=== PATIENT | male | born 1950 | race Caucasian/White ===

== ENCOUNTER 2017-06-11 18:48 | Inpatient (IN) | payer MEDICARE, BC ==
[2017-06-12 00:19] LABS: ADD MAN DIFF? NO
[2017-06-12 00:20] LABS: BASOPHILS % 0.1 % (0.0-2.0); EOSINOPHILS % 0.1 % (0.0-7.0); HEMATOCRIT 44.9 % (42.0-52.0); HEMOGLOBIN 15.5 g/dl (14.0-18.0); LYMPHOCYTES # 1.6 10^3/ul (0.8-2.9); LYMPHOCYTES % 12.2 % (15.0-51.0); MEAN CORPUSCULAR HGB CONC 34.5 g/dl (32.0-37.0); MEAN CORPUSCULAR VOLUME 92.8 fl (82.0-101.0); MEAN PLATELET VOLUME 9.4 fl (7.4-10.4); MONOCYTES % 7.6 % (0.0-11.0); NEUTROPHIL # 10.6 10^3/ul (1.6-7.5); NEUTROPHILS % 79.4 % (39.0-77.0); PLATELET COUNT 268 10^3/UL (140-415); RED BLOOD COUNT 4.84 10^6/ul (4.70-6.10); RED CELL DISTRIBUTION WIDTH 13.7 % (11.5-14.5)
[2017-06-12 00:20] LABS: WHITE BLOOD COUNT 13.4 10^3/ul (4.8-10.8)
[2017-06-12] MEDS: ONDANSETRON 4 MG INJ IV (00:23)
[2017-06-12] MEDS: SOD CHLORIDE 0.9% 1,000 ML IV (00:23)
[2017-06-12 00:45] LABS: ALANINE AMINOTRANSFERASE 82 IU/L (13-69); ALBUMIN 4.7 g/dl (3.3-4.9); ALBUMIN/GLOBULIN RATIO 1.02; ALKALINE PHOSPHATASE 108 IU/L (42-121); ANION GAP 20 (8-16); ASPARTATE AMINO TRANSFERASE 94 IU/L (15-46); BILIRUBIN,INDIRECT 0.4 mg/dl (0-1.1); BILIRUBIN,TOTAL 0.4 mg/dl (0.2-1.3); BLOOD UREA NITROGEN 26 mg/dl (7-20); CALCIUM 10.4 mg/dl (8.4-10.2); CARBON DIOXIDE 36 mmol/L (21-31); CHLORIDE 89 mmol/L (97-110); CREATININE 1.58 mg/dl (0.61-1.24); GLUCOSE 127 mg/dl (70-220); LIPASE 85 U/L (23-300); POTASSIUM 3.7 mmol/L (3.5-5.1); SODIUM 141 mmol/L (135-144); TOTAL PROTEIN 9.3 g/dl (6.1-8.1)
[2017-06-12 00:58] LABS: ADD UMIC YES; UR ASCORBIC ACID NEGATIVE (NEGATIVE); UR BACTERIA FEW /HPF (NONE SEEN); UR BILIRUBIN (Dip) 1+ mg/dL (NEGATIVE); UR BLOOD (Dip) 1+ mg/dL (NEGATIVE); UR CLARITY CLOUDY (CLEAR); UR COLOR AMBER (YELLOW); UR GLUCOSE (Dip) 1+ mg/dL (NEGATIVE); UR GRANULAR CAST FEW /HPF (NONE SEEN); UR HYALINE CAST FEW /HPF (NONE SEEN); UR KETONES (Dip) NEGATIVE (NEGATIVE); UR LEUKOCYTE ESTERASE (Dip) 1+ Leu/ul (NEGATIVE); UR MUCUS MODERATE /HPF (NONE SEEN); UR NITRITE (Dip) NEGATIVE (NEGATIVE); UR RBC 9 /HPF (0-5); UR SPECIFIC GRAVITY (Dip) 1.024 (1.003-1.030); UR SQUAMOUS EPITHELIAL CELL FEW /HPF (FEW); UR TOTAL PROTEIN (Dip) 2+ mg/dl (NEGATIVE); UR UROBILINOGEN (Dip) 2+ mg/dL (NEGATIVE); UR WBC 27 /HPF (0-5)
[2017-06-12 01:03] LABS: TROPONIN-I < 0.012 ng/ml (0.00-0.12)
[2017-06-12] MEDS: CEFTRIAXONE 1 GM/50 ML (PMX) 50 ML IVPB (02:04)
[2017-06-12] MEDS ORDERED: NACL 0.9% 3 ML SYG IV (05:00)
[2017-06-12] MEDS ORDERED: ALBUTEROL/IPRATROPIUM (NEB) 3 ML AMP HHN (05:00)
[2017-06-12] MEDS ORDERED: morphine 2 MG INJ IV (05:00)
[2017-06-12] MEDS ORDERED: ONDANSETRON 4 MG INJ IV (05:00)
[2017-06-12] MEDS: DEXTROSE 5%-0.45% NACL 1,000 ML IV ×2 (05:20→16:32)
[2017-06-12] MEDS: FAMOTIDINE 20 MG INJ IV (06:22)
[2017-06-12] MEDS ORDERED: FAMOTIDINE 20 MG INJ IV (09:00)
[2017-06-12 14:28] LABS: ALANINE AMINOTRANSFERASE 60 IU/L (13-69); ALBUMIN 3.8 g/dl (3.3-4.9); ALKALINE PHOSPHATASE 79 IU/L (42-121); ASPARTATE AMINO TRANSFERASE 71 IU/L (15-46); BILIRUBIN,INDIRECT 0.4 mg/dl (0-1.1); BILIRUBIN,TOTAL 0.4 mg/dl (0.2-1.3); TOTAL PROTEIN 7.3 g/dl (6.1-8.1)
[2017-06-12] MEDS ORDERED: PROMETHAZINE/CODEINE 5ML CUP PO (15:00)
[2017-06-12 16:58] LABS: ADD UMIC YES; UR ASCORBIC ACID NEGATIVE (NEGATIVE); UR BILIRUBIN (Dip) NEGATIVE (NEGATIVE); UR BLOOD (Dip) 1+ mg/dL (NEGATIVE); UR CLARITY CLEAR (CLEAR); UR COLOR YELLOW (YELLOW); UR GLUCOSE (Dip) NEGATIVE (NEGATIVE); UR KETONES (Dip) NEGATIVE (NEGATIVE); UR LEUKOCYTE ESTERASE (Dip) TRACE Leu/ul (NEGATIVE); UR NITRITE (Dip) NEGATIVE (NEGATIVE); UR RBC 2 /HPF (0-5); UR SPECIFIC GRAVITY (Dip) 1.019 (1.003-1.030); UR TOTAL PROTEIN (Dip) NEGATIVE (NEGATIVE); UR UROBILINOGEN (Dip) 1+ mg/dL (NEGATIVE); UR WBC 4 /HPF (0-5)
[2017-06-12] MEDS: ALBUTEROL HFA 8 GM INHALER INH ×2 (17:00→21:08)
[2017-06-12 17:07] LABS: SODIUM,URINE RANDOM 120 mmol/L (30-90)
[2017-06-12 17:11] LABS: CREATININE,URINE RANDOM 229.92 mg/dl (20-370)
[2017-06-12] MEDS: PANTOPRAZOLE 40 MG INJ IV (17:41)
[2017-06-12] MEDS: METOPROLOL (XL) 25 MG TAB PO (21:09)
[2017-06-13] MEDS: DEXTROSE 5%-0.45% NACL 1,000 ML IV ×3 (00:58→13:23)
[2017-06-13] MEDS: CEFTRIAXONE 1 GM/50 ML (PMX) 50 ML IVPB (01:35)
[2017-06-13] MEDS: ALBUTEROL HFA 8 GM INHALER INH ×6 (01:36→22:00)
[2017-06-13] MEDS: PANTOPRAZOLE 40 MG INJ IV ×2 (05:10→19:33)
[2017-06-13 05:56] LABS: ADD MAN DIFF? NO
[2017-06-13 06:13] LABS: BASOPHILS % 0.2 % (0.0-2.0); EOSINOPHILS # 0.1 10^3/ul (0.0-0.5); EOSINOPHILS % 0.9 % (0.0-7.0); LYMPHOCYTES % 22.2 % (15.0-51.0); MEAN CORPUSCULAR HEMOGLOBIN 31.9 pg (29.0-33.0); MEAN CORPUSCULAR HGB CONC 33.3 g/dl (32.0-37.0); MEAN CORPUSCULAR VOLUME 95.8 fl (82.0-101.0); MONOCYTE # 0.7 10^3/ul (0.3-0.9); MONOCYTES % 7.4 % (0.0-11.0); NEUTROPHIL # 6.3 10^3/ul (1.6-7.5); NEUTROPHILS % 68.6 % (39.0-77.0); PLATELET COUNT 202 10^3/UL (140-415); RED BLOOD COUNT 4.07 10^6/ul (4.70-6.10); RED CELL DISTRIBUTION WIDTH 13.4 % (11.5-14.5)
[2017-06-13 06:13] LABS: WHITE BLOOD COUNT 9.1 10^3/ul (4.8-10.8)
[2017-06-13 06:39] LABS: ALANINE AMINOTRANSFERASE 56 IU/L (13-69); ALBUMIN/GLOBULIN RATIO 1.08; ALKALINE PHOSPHATASE 77 IU/L (42-121); ANION GAP 14 (8-16); ASPARTATE AMINO TRANSFERASE 53 IU/L (15-46); BILIRUBIN,INDIRECT 0.2 mg/dl (0-1.1); BILIRUBIN,TOTAL 0.2 mg/dl (0.2-1.3); BLOOD UREA NITROGEN 16 mg/dl (7-20); CARBON DIOXIDE 33 mmol/L (21-31); CHLORIDE 97 mmol/L (97-110); CREATININE 0.94 mg/dl (0.61-1.24); GLUCOSE 95 mg/dl (70-220); MAGNESIUM 1.4 mg/dl (1.7-2.5); PHOSPHORUS 3.4 mg/dl (2.5-4.9); POTASSIUM 3.6 mmol/L (3.5-5.1); SODIUM 140 mmol/L (135-144); TOTAL PROTEIN 7.7 g/dl (6.1-8.1)
[2017-06-13] MEDS: METOPROLOL (XL) 25 MG TAB PO ×2 (08:05→22:00)
[2017-06-13] MEDS: predniSONE 20 MG TAB PO (08:05)
[2017-06-13] MEDS: MAGNESIUM SULFATE 2 GM/50 ML 50 ML IVPB (10:22)
[2017-06-13] MEDS: NICOTINE (21 MG/24 HR) PATCH TRANSDERM (19:34)
[2017-06-14] MEDS: CEFTRIAXONE 1 GM/50 ML (PMX) 50 ML IVPB (01:28)
[2017-06-14] MEDS: ALBUTEROL HFA 8 GM INHALER INH ×3 (01:28→08:35)
[2017-06-14] MEDS: DEXTROSE 5%-0.45% NACL 1,000 ML IV (02:19)
[2017-06-14] MEDS: hydrALAzine 20 MG INJ IV (02:19)
[2017-06-14] MEDS: PANTOPRAZOLE (EC) 40 MG TAB PO (05:14)
[2017-06-14 05:47] LABS: ADD MAN DIFF? NO
[2017-06-14 05:55] LABS: BASOPHILS % 0.2 % (0.0-2.0); EOSINOPHILS # 0.1 10^3/ul (0.0-0.5); EOSINOPHILS % 0.7 % (0.0-7.0); HEMOGLOBIN 13.2 g/dl (14.0-18.0); LYMPHOCYTES # 1.9 10^3/ul (0.8-2.9); LYMPHOCYTES % 18.8 % (15.0-51.0); MEAN CORPUSCULAR HEMOGLOBIN 31.8 pg (29.0-33.0); MEAN CORPUSCULAR HGB CONC 33.8 g/dl (32.0-37.0); MONOCYTE # 0.9 10^3/ul (0.3-0.9); MONOCYTES % 8.7 % (0.0-11.0); NEUTROPHIL # 7.1 10^3/ul (1.6-7.5); NEUTROPHILS % 71.3 % (39.0-77.0); PLATELET COUNT 189 10^3/UL (140-415); RED BLOOD COUNT 4.15 10^6/ul (4.70-6.10); RED CELL DISTRIBUTION WIDTH 13.4 % (11.5-14.5)
[2017-06-14 06:31] LABS: ANION GAP 17 (8-16); BLOOD UREA NITROGEN 16 mg/dl (7-20); CALCIUM 9.8 mg/dl (8.4-10.2); CARBON DIOXIDE 29 mmol/L (21-31); CHLORIDE 104 mmol/L (97-110); CREATININE 0.83 mg/dl (0.61-1.24); GLUCOSE 95 mg/dl (70-220); POTASSIUM 3.5 mmol/L (3.5-5.1); SODIUM 146 mmol/L (135-144)
[2017-06-14] MEDS ORDERED: INFLUENZA VIRUS VACCINE 0.5 ML (DISPENSING) IM* (08:00)
[2017-06-14] MEDS: predniSONE 20 MG TAB PO (08:34)
[2017-06-14] MEDS: NICOTINE (21 MG/24 HR) PATCH TRANSDERM (08:34)
[2017-06-14] MEDS: METOPROLOL (XL) 25 MG TAB PO (08:34)
[2017-06-14 15:02] LABS: CREATININE, RANDOM URINE 252 mg/dL (20-370); MICROALBUMIN 1.6 mg/dL; MICROALBUMIN/CREATININE RATIO 6 (<30)
== END 2017-06-14 14:00 | disposition home or self-care (01) | DRG 392 ==
LOC: E/R 18:48 → MS2 06-12 02:24
PROVIDERS: Internal Medicine
DX: K29.70 Gastritis, unspecified, without bleeding (principal); N39.0 Urinary tract infection, site not specified; N17.9 Acute kidney failure, unspecified; E87.3 Alkalosis; E87.0 Hyperosmolality and hypernatremia; E86.9 Volume depletion, unspecified; F10.10 Alcohol abuse, uncomplicated; F17.200 Nicotine dependence, unspecified, uncomplicated; I10 Essential (primary) hypertension; J44.9 Chronic obstructive pulmonary disease, unspecified; R00.0 Tachycardia, unspecified; Z53.20 Procedure and treatment not carried out because of patient's decision for unspecified reasons
CPT/HCPCS: 36415; 74176; 80048; 80053; 80076; 81001; 81003; 82043; 82962; 83690; 83735; 84100; 84155; 84300; 84484; 85025; 87086; 93005; 96374; 96375; 99285-25

== ENCOUNTER 2018-02-10 04:07 | Inpatient (IN) | payer MEDICARE, BC ==
[2018-02-10] MEDS: ALBUTEROL 0.083% (NEB) 2.5 MG/3 ML AMP HHN (04:30)
[2018-02-10] MEDS: IPRATROPIUM (NEB) 0.5 MG/2.5 ML AMP HHN (04:31)
[2018-02-10] MEDS: ALBUTEROL 0.083% (NEB) 2.5 MG/3 ML AMP INH (04:33)
[2018-02-10] MEDS: IPRATROPIUM (NEB) 0.5 MG/2.5 ML AMP INH (04:33)
[2018-02-10 04:47] LABS: ADD MAN DIFF? NO
[2018-02-10 04:49] LABS: WHITE BLOOD COUNT 7.7 10^3/ul (4.8-10.8)
[2018-02-10 04:49] LABS: BASOPHILS % 0.3 % (0.0-2.0); EOSINOPHILS # 0.1 10^3/ul (0.0-0.5); EOSINOPHILS % 1.2 % (0.0-7.0); HEMATOCRIT 45.7 % (42.0-52.0); HEMOGLOBIN 15.1 g/dl (14.0-18.0); LYMPHOCYTES # 2.1 10^3/ul (0.8-2.9); LYMPHOCYTES % 26.6 % (15.0-51.0); MEAN CORPUSCULAR HEMOGLOBIN 31.3 pg (29.0-33.0); MEAN CORPUSCULAR VOLUME 94.8 fl (82.0-101.0); MEAN PLATELET VOLUME 9.4 fl (7.4-10.4); MONOCYTE # 0.8 10^3/ul (0.3-0.9); MONOCYTES % 10.9 % (0.0-11.0); NEUTROPHIL # 4.7 10^3/ul (1.6-7.5); NEUTROPHILS % 60.7 % (39.0-77.0); PLATELET COUNT 283 10^3/UL (140-415); RED BLOOD COUNT 4.82 10^6/ul (4.70-6.10)
[2018-02-10 05:05] LABS: ALANINE AMINOTRANSFERASE 20 IU/L (13-69); ALBUMIN 4.3 g/dl (3.3-4.9); ALBUMIN/GLOBULIN RATIO 0.97; ALKALINE PHOSPHATASE 90 IU/L (42-121); ANION GAP 13 (5-13); ASPARTATE AMINO TRANSFERASE 41 IU/L (15-46); BILIRUBIN,INDIRECT 0.3 mg/dl (0-1.1); BILIRUBIN,TOTAL 0.3 mg/dl (0.2-1.3); BLOOD UREA NITROGEN 14 mg/dl (7-20); CALCIUM 9.5 mg/dl (8.4-10.2); CARBON DIOXIDE 31 mmol/L (21-31); CHLORIDE 101 mmol/L (97-110); CREATININE 0.81 mg/dl (0.61-1.24); Estimated GFR > 60 mL/min (>60); GLUCOSE 109 mg/dl (70-220); POTASSIUM 3.9 mmol/L (3.5-5.1); SODIUM 145 mmol/L (135-144); TOTAL PROTEIN 8.7 g/dl (6.1-8.1)
[2018-02-10 05:15] LABS: INR 0.83; PARTIAL THROMBOPLASTIN TIME 27.2 Sec (23.0-35.0); PROTIME 11.5 Sec (11.9-14.9); PT RATIO 0.9
[2018-02-10 05:17] LABS: B-TYPE NATRIURETIC PEPTIDE 114 PG/ML (0-125); TROPONIN-I < 0.012 ng/ml (0.000-0.120)
[2018-02-10 05:36] LABS: AADO2 Arterial 579.8 mmHg (7.0-24.0); Allen Test ACCEPTAB; Arterial Blood Gas Oxygen Sat 95.9 mmHG (95.0-98.0); Arterial COHb 3.1 % (0.0-3.0); Arterial Fraction of Oxyhgb 92.6 % (93.0-99.0); Arterial HCO3 30.2 mmol/L (22.0-26.0); Arterial MetHb 0.3 % (0.0-1.5); Arterial Total Hemglobin 15.9 g/dl (12.0-18.0); MODE MASK - NRB; Site Right Radial
[2018-02-10] MEDS ORDERED: morphine 4 MG/ML VIAL (05:44)
[2018-02-10] MEDS: morphine 10 MG INJ IV (06:08)
[2018-02-10 08:40] LABS: LACTIC ACID 1.7 mmol/L (0.5-2.0)
[2018-02-10] MEDS ORDERED: ALBUTEROL/IPRATROPIUM (NEB) 3 ML AMP HHN (11:00)
[2018-02-10] MEDS: morphine 2 MG INJ IV ×3 (11:38→21:04)
[2018-02-10] MEDS: AMLODIPINE 10 MG TAB PO (13:24)
[2018-02-10] MEDS ORDERED: ACETAMINOPHEN 325 MG TAB PO (13:30)
[2018-02-10] MEDS ORDERED: ZOLPIDEM 5 MG TAB PO (13:30)
[2018-02-10] MEDS ORDERED: NACL 0.9% 3 ML SYG IV (13:30)
[2018-02-10] MEDS: PANTOPRAZOLE (EC) 40 MG TAB PO (14:15)
[2018-02-10] MEDS: ONDANSETRON 4 MG INJ IV ×2 (14:15→21:03)
[2018-02-11] MEDS: PANTOPRAZOLE (EC) 40 MG TAB PO (05:36)
[2018-02-11] MEDS: ONDANSETRON 4 MG INJ IV (05:36)
[2018-02-11] MEDS: morphine 2 MG INJ IV ×4 (05:38→23:19)
[2018-02-11 07:08] LABS: ADD MAN DIFF? NO
[2018-02-11 07:20] LABS: BASOPHILS % 0.2 % (0.0-2.0); EOSINOPHILS # 0.1 10^3/ul (0.0-0.5); EOSINOPHILS % 1.2 % (0.0-7.0); HEMOGLOBIN 13.9 g/dl (14.0-18.0); LYMPHOCYTES # 1.2 10^3/ul (0.8-2.9); LYMPHOCYTES % 14.4 % (15.0-51.0); MEAN CORPUSCULAR HEMOGLOBIN 31.1 pg (29.0-33.0); MEAN CORPUSCULAR HGB CONC 32.3 g/dl (32.0-37.0); MEAN CORPUSCULAR VOLUME 96.2 fl (82.0-101.0); MEAN PLATELET VOLUME 9.8 fl (7.4-10.4); MONOCYTE # 0.8 10^3/ul (0.3-0.9); MONOCYTES % 9.1 % (0.0-11.0); NEUTROPHIL # 6.3 10^3/ul (1.6-7.5); NEUTROPHILS % 74.9 % (39.0-77.0); PLATELET COUNT 246 10^3/UL (140-415); RED BLOOD COUNT 4.47 10^6/ul (4.70-6.10); RED CELL DISTRIBUTION WIDTH 14.1 % (11.5-14.5)
[2018-02-11 07:20] LABS: WHITE BLOOD COUNT 8.4 10^3/ul (4.8-10.8)
[2018-02-11 07:40] LABS: ANION GAP 8 (5-13); BLOOD UREA NITROGEN 13 mg/dl (7-20); CARBON DIOXIDE 32 mmol/L (21-31); CHLORIDE 97 mmol/L (97-110); CREATININE 0.74 mg/dl (0.61-1.24); Estimated GFR > 60 mL/min (>60); GLUCOSE 143 mg/dl (70-220); POTASSIUM 3.7 mmol/L (3.5-5.1); SODIUM 137 mmol/L (135-144)
[2018-02-11] MEDS: AMLODIPINE 10 MG TAB PO (09:02)
[2018-02-12 07:14] LABS: ADD MAN DIFF? NO
[2018-02-12] MEDS: PANTOPRAZOLE (EC) 40 MG TAB PO (07:17)
[2018-02-12 07:18] LABS: WHITE BLOOD COUNT 9.9 10^3/ul (4.8-10.8)
[2018-02-12 07:18] LABS: BASOPHILS % 0.2 % (0.0-2.0); EOSINOPHILS # 0.1 10^3/ul (0.0-0.5); EOSINOPHILS % 0.7 % (0.0-7.0); HEMATOCRIT 43.3 % (42.0-52.0); HEMOGLOBIN 14.4 g/dl (14.0-18.0); LYMPHOCYTES # 1.6 10^3/ul (0.8-2.9); MEAN CORPUSCULAR HEMOGLOBIN 31.9 pg (29.0-33.0); MEAN CORPUSCULAR HGB CONC 33.3 g/dl (32.0-37.0); MEAN CORPUSCULAR VOLUME 95.8 fl (82.0-101.0); MEAN PLATELET VOLUME 9.8 fl (7.4-10.4); MONOCYTE # 0.8 10^3/ul (0.3-0.9); MONOCYTES % 8.5 % (0.0-11.0); NEUTROPHIL # 7.4 10^3/ul (1.6-7.5); NEUTROPHILS % 74.4 % (39.0-77.0); PLATELET COUNT 256 10^3/UL (140-415); RED BLOOD COUNT 4.52 10^6/ul (4.70-6.10); RED CELL DISTRIBUTION WIDTH 13.6 % (11.5-14.5)
[2018-02-12 07:53] LABS: ANION GAP 8 (5-13); BLOOD UREA NITROGEN 14 mg/dl (7-20); CALCIUM 9.1 mg/dl (8.4-10.2); CARBON DIOXIDE 32 mmol/L (21-31); CHLORIDE 97 mmol/L (97-110); CREATININE 0.73 mg/dl (0.61-1.24); Estimated GFR > 60 mL/min (>60); GLUCOSE 102 mg/dl (70-220); MAGNESIUM 1.6 mg/dl (1.7-2.5); POTASSIUM 4.3 mmol/L (3.5-5.1); SODIUM 137 mmol/L (135-144)
[2018-02-12] MEDS: AMLODIPINE 10 MG TAB PO (08:56)
[2018-02-12] MEDS: morphine 2 MG INJ IV ×3 (12:59→21:06)
[2018-02-12] MEDS: GUAIFENESIN 20 MG/ML 5ML CUP PO (21:05)
[2018-02-13] MEDS: morphine 2 MG INJ IV ×5 (01:49→20:57)
[2018-02-13] MEDS: PANTOPRAZOLE (EC) 40 MG TAB PO (05:43)
[2018-02-13] MEDS: AMLODIPINE 10 MG TAB PO (08:44)
[2018-02-14] MEDS: PANTOPRAZOLE (EC) 40 MG TAB PO (05:09)
[2018-02-14 06:39] LABS: ADD MAN DIFF? NO
[2018-02-14 06:51] LABS: BASOPHILS % 0.3 % (0.0-2.0); EOSINOPHILS # 0.1 10^3/ul (0.0-0.5); EOSINOPHILS % 1.2 % (0.0-7.0); HEMATOCRIT 42.6 % (42.0-52.0); HEMOGLOBIN 14.1 g/dl (14.0-18.0); LYMPHOCYTES # 1.7 10^3/ul (0.8-2.9); LYMPHOCYTES % 16.4 % (15.0-51.0); MEAN CORPUSCULAR HEMOGLOBIN 31.5 pg (29.0-33.0); MEAN CORPUSCULAR HGB CONC 33.1 g/dl (32.0-37.0); MEAN CORPUSCULAR VOLUME 95.1 fl (82.0-101.0); MEAN PLATELET VOLUME 9.8 fl (7.4-10.4); MONOCYTE # 1.1 10^3/ul (0.3-0.9); MONOCYTES % 10.3 % (0.0-11.0); NEUTROPHIL # 7.4 10^3/ul (1.6-7.5); NEUTROPHILS % 71.3 % (39.0-77.0); PLATELET COUNT 280 10^3/UL (140-415); RED BLOOD COUNT 4.48 10^6/ul (4.70-6.10); RED CELL DISTRIBUTION WIDTH 13.3 % (11.5-14.5)
[2018-02-14 06:51] LABS: WHITE BLOOD COUNT 10.3 10^3/ul (4.8-10.8)
[2018-02-14 07:32] LABS: ANION GAP 9 (5-13); BLOOD UREA NITROGEN 19 mg/dl (7-20); CALCIUM 9.3 mg/dl (8.4-10.2); CARBON DIOXIDE 32 mmol/L (21-31); CHLORIDE 96 mmol/L (97-110); CREATININE 0.82 mg/dl (0.61-1.24); Estimated GFR > 60 mL/min (>60); GLUCOSE 123 mg/dl (70-220); MAGNESIUM 1.7 mg/dl (1.7-2.5); PHOSPHORUS 4.3 mg/dl (2.5-4.9); POTASSIUM 4.6 mmol/L (3.5-5.1); SODIUM 137 mmol/L (135-144)
[2018-02-14] MEDS: AMLODIPINE 10 MG TAB PO (08:24)
[2018-02-14] MEDS: morphine 2 MG INJ IV (11:10)
[2018-02-15] MEDS: PANTOPRAZOLE (EC) 40 MG TAB PO (05:42)
[2018-02-15] MEDS: HYDROCODONE/APAP (5/325) TAB PO (05:48)
[2018-02-15] MEDS: AMLODIPINE 10 MG TAB PO (08:19)
== END 2018-02-15 16:43 | disposition home or self-care (01) | DRG 199 ==
LOC: E/R 04:07 → TEL 05:53
PROC: 0W9B30Z Drainage of Left Pleural Cavity with Drainage Device, Percutaneous Approach (ICD-10-PCS; principal; 2018-02-10)
DX: J93.0 Spontaneous tension pneumothorax (principal); J96.01 Acute respiratory failure with hypoxia; J44.9 Chronic obstructive pulmonary disease, unspecified; F17.210 Nicotine dependence, cigarettes, uncomplicated; I10 Essential (primary) hypertension; K29.50 Unspecified chronic gastritis without bleeding; Z87.11 Personal history of peptic ulcer disease; Z99.81 Dependence on supplemental oxygen
CPT/HCPCS: 36415; 36600; 71045; 71250; 80048; 80053; 82803; 83605; 83735; 83880; 84100; 84484; 85025; 85610; 85730; 93005; 94644; 94660; 99291-25

== ENCOUNTER 2018-05-22 20:39 | Emergency (ER) | payer MEDICARE, BC ==
[2018-05-23 03:19] LABS: WHITE BLOOD COUNT 8.4 10^3/ul (4.8-10.8)
[2018-05-23 03:19] LABS: ADD MAN DIFF? NO; BASOPHILS % 0.5 % (0.0-2.0); EOSINOPHILS # 0.2 10^3/ul (0.0-0.5); EOSINOPHILS % 2.5 % (0.0-7.0); HEMATOCRIT 40.1 % (42.0-52.0); HEMOGLOBIN 13.4 g/dl (14.0-18.0); LYMPHOCYTES # 1.7 10^3/ul (0.8-2.9); LYMPHOCYTES % 20.6 % (15.0-51.0); MEAN CORPUSCULAR HEMOGLOBIN 31.4 pg (29.0-33.0); MEAN CORPUSCULAR HGB CONC 33.4 g/dl (32.0-37.0); MEAN CORPUSCULAR VOLUME 93.9 fl (82.0-101.0); MEAN PLATELET VOLUME 9.6 fl (7.4-10.4); MONOCYTE # 0.8 10^3/ul (0.3-0.9); MONOCYTES % 9.9 % (0.0-11.0); NEUTROPHIL # 5.5 10^3/ul (1.6-7.5); NEUTROPHILS % 65.9 % (39.0-77.0); PLATELET COUNT 219 10^3/UL (140-415); RED BLOOD COUNT 4.27 10^6/ul (4.70-6.10); RED CELL DISTRIBUTION WIDTH 14.1 % (11.5-14.5)
[2018-05-23 04:34] LABS: ALANINE AMINOTRANSFERASE 23 IU/L (13-69); ALBUMIN 3.9 g/dl (3.3-4.9); ALBUMIN/GLOBULIN RATIO 1.08; ALKALINE PHOSPHATASE 70 IU/L (42-121); ANION GAP 11 (5-13); ASPARTATE AMINO TRANSFERASE 31 IU/L (15-46); BILIRUBIN,INDIRECT 0.5 mg/dl (0-1.1); BILIRUBIN,TOTAL 0.5 mg/dl (0.2-1.3); BLOOD UREA NITROGEN 12 mg/dl (7-20); CALCIUM 9.6 mg/dl (8.4-10.2); CARBON DIOXIDE 26 mmol/L (21-31); CHLORIDE 104 mmol/L (97-110); CREATININE 0.75 mg/dl (0.61-1.24); Estimated GFR > 60 mL/min (>60); GLUCOSE 100 mg/dl (70-220); LIPASE 351 U/L (23-300); SODIUM 141 mmol/L (135-144); TOTAL PROTEIN 7.5 g/dl (6.1-8.1)
[2018-05-23] MEDS: PIPER-TAZO 3.375 GM IV (PMX) 100 ML IVPB (05:13)
== END 2018-05-23 05:49 | disposition home or self-care (01) ==
LOC: E/R 20:39
DX: L03.313 Cellulitis of chest wall (principal); I10 Essential (primary) hypertension; F17.210 Nicotine dependence, cigarettes, uncomplicated
CPT/HCPCS: 36415; 71250; 80053; 83690; 85025; 87040; 96365; 99285-25

== ENCOUNTER 2018-07-02 20:36 | Inpatient (IN) | payer MEDICARE, BC ==
[2018-07-02 20:57] LABS: ADD MAN DIFF? NO
[2018-07-02] MEDS: ALBUTEROL 0.5% (NEB) 2.5 MG/0.5 ML AMP INH (21:01)
[2018-07-02] MEDS: SOD CHLORIDE 0.9% 500 ML IV (21:01)
[2018-07-02 21:04] LABS: AADO2 Arterial 93.4 mmHg (7.0-24.0); Allen Test ACCEPTAB; Arterial Base Excess 2.1 mmol/L (-3.0-3); Arterial Blood Gas Oxygen Sat 94.6 mmHG (95.0-98.0); Arterial COHb 0.5 % (0.0-3.0); Arterial Fraction of Oxyhgb 93.8 % (93.0-99.0); Arterial HCO3 26.7 mmol/L (22.0-26.0); Arterial MetHb 0.3 % (0.0-1.5); Arterial pCO2 41.3 mmhg (35-45); MODE NASAL CANNULA; Site Left Radial
[2018-07-02] MEDS: METHYLPREDNISOLONE 125 MG INJ IV (21:08)
[2018-07-02] MEDS: LORAZEPAM 2 MG INJ IV (21:08)
[2018-07-02] MEDS: ASPIRIN 81 MG TAB PO (21:10)
[2018-07-02 21:17] LABS: ALANINE AMINOTRANSFERASE 40 IU/L (13-69); ALBUMIN/GLOBULIN RATIO 1.11; ALKALINE PHOSPHATASE 117 IU/L (42-121); ANION GAP 21 (5-13); ASPARTATE AMINO TRANSFERASE 52 IU/L (15-46); BILIRUBIN,INDIRECT 0.8 mg/dl (0-1.1); BILIRUBIN,TOTAL 0.8 mg/dl (0.2-1.3); BLOOD UREA NITROGEN 18 mg/dl (7-20); CALCIUM 10.5 mg/dl (8.4-10.2); CARBON DIOXIDE 23 mmol/L (21-31); CHLORIDE 100 mmol/L (97-110); CREATININE 1.01 mg/dl (0.61-1.24); Estimated GFR > 60 mL/min (>60); GLUCOSE 145 mg/dl (70-220); LIPASE 147 U/L (23-300); POTASSIUM 4.5 mmol/L (3.5-5.1); SODIUM 144 mmol/L (135-144); TOTAL PROTEIN 9.1 g/dl (6.1-8.1)
[2018-07-02 21:26] LABS: BASOPHIL # 0.1 10^3/ul (0.0-0.1); BASOPHILS % 0.6 % (0.0-2.0); HEMATOCRIT 43.8 % (42.0-52.0); HEMOGLOBIN 14.7 g/dl (14.0-18.0); LYMPHOCYTES # 1.2 10^3/ul (0.8-2.9); LYMPHOCYTES % 11.5 % (15.0-51.0); MEAN CORPUSCULAR HEMOGLOBIN 31.3 pg (29.0-33.0); MEAN CORPUSCULAR HGB CONC 33.6 g/dl (32.0-37.0); MEAN CORPUSCULAR VOLUME 93.2 fl (82.0-101.0); MEAN PLATELET VOLUME 8.8 fl (7.4-10.4); MONOCYTE # 0.3 10^3/ul (0.3-0.9); MONOCYTES % 3.2 % (0.0-11.0); NEUTROPHIL # 9.1 10^3/ul (1.6-7.5); NEUTROPHILS % 84.4 % (39.0-77.0); PLATELET COUNT 266 10^3/UL (140-415); RED CELL DISTRIBUTION WIDTH 13.7 % (11.5-14.5)
[2018-07-02 21:26] LABS: WHITE BLOOD COUNT 10.7 10^3/ul (4.8-10.8)
[2018-07-02 21:28] LABS: TROPONIN-I < 0.012 ng/ml (0.000-0.120)
[2018-07-02] MEDS ORDERED: ACETAMINOPHEN 325 MG TAB PO (21:30)
[2018-07-02] MEDS ORDERED: NACL 0.9% 3 ML SYG IV (21:30)
[2018-07-02] MEDS ORDERED: ONDANSETRON 4 MG INJ IV (21:30)
[2018-07-02] MEDS ORDERED: ALBUTEROL 0.083% (NEB) 2.5 MG/3 ML AMP HHN (21:30)
[2018-07-02 21:35] LABS: B-TYPE NATRIURETIC PEPTIDE 42 PG/ML (0-125)
[2018-07-02 21:49] LABS: ALBUMIN 4.8 g/dl (3.3-4.9)
[2018-07-03 05:55] LABS: ADD MAN DIFF? NO
[2018-07-03 05:57] LABS: ABNORMAL IP MESSAGE 1; BASOPHILS % 0.1 % (0.0-2.0); HEMOGLOBIN 14.3 g/dl (14.0-18.0); LYMPHOCYTES # 0.5 10^3/ul (0.8-2.9); LYMPHOCYTES % 7.6 % (15.0-51.0); MEAN CORPUSCULAR HEMOGLOBIN 31.6 pg (29.0-33.0); MEAN CORPUSCULAR VOLUME 92.7 fl (82.0-101.0); MEAN PLATELET VOLUME 9.2 fl (7.4-10.4); MONOCYTES % 0.4 % (0.0-11.0); NEUTROPHIL # 6.2 10^3/ul (1.6-7.5); NEUTROPHILS % 91.6 % (39.0-77.0); PLATELET COUNT 252 10^3/UL (140-415); POSITIVE DIFF @See below; RED BLOOD COUNT 4.53 10^6/ul (4.70-6.10)
[2018-07-03 05:57] LABS: WHITE BLOOD COUNT 6.8 10^3/ul (4.8-10.8)
[2018-07-03 06:28] LABS: ALANINE AMINOTRANSFERASE 40 IU/L (13-69); ALBUMIN 4.1 g/dl (3.3-4.9); ALKALINE PHOSPHATASE 85 IU/L (42-121); ANION GAP 13 (5-13); ASPARTATE AMINO TRANSFERASE 37 IU/L (15-46); BILIRUBIN,INDIRECT 0.8 mg/dl (0-1.1); BILIRUBIN,TOTAL 0.8 mg/dl (0.2-1.3); BLOOD UREA NITROGEN 19 mg/dl (7-20); CALCIUM 9.7 mg/dl (8.4-10.2); CARBON DIOXIDE 29 mmol/L (21-31); CHLORIDE 97 mmol/L (97-110); CREATININE 0.82 mg/dl (0.61-1.24); Estimated GFR > 60 mL/min (>60); GLUCOSE 179 mg/dl (70-220); POTASSIUM 4.1 mmol/L (3.5-5.1); SODIUM 139 mmol/L (135-144); TOTAL PROTEIN 7.5 g/dl (6.1-8.1)
[2018-07-03 06:38] LABS: HEMOGLOBIN A1C 5.4 % (0-5.9)
[2018-07-03] MEDS: FAMOTIDINE 20 MG INJ IV (09:38)
[2018-07-03] MEDS: METHYLPREDNISOLONE 125 MG INJ IV ×2 (09:38→23:09)
[2018-07-03] MEDS: ENOXAPARIN 30 MG/0.3 ML SYG SC (09:40)
[2018-07-03] MEDS ORDERED: LORAZEPAM 0.5 MG TAB PO (13:00)
[2018-07-03] MEDS: FAMOTIDINE 20 MG TAB PO (23:09)
[2018-07-04] MEDS: morphine 2 MG INJ IV (00:20)
[2018-07-04] MEDS: METHYLPREDNISOLONE 125 MG INJ IV ×2 (09:18→22:45)
[2018-07-04] MEDS: FAMOTIDINE 20 MG TAB PO ×2 (09:19→22:46)
[2018-07-04] MEDS: ENOXAPARIN 30 MG/0.3 ML SYG SC (09:24)
[2018-07-04 12:10] LABS: CREATINE KINASE 74 IU/L (23-200)
[2018-07-04 12:24] LABS: CK INDEX 2.6; CK-MB 1.91 ng/ml (0.0-2.4); TROPONIN-I < 0.012 ng/ml (0.000-0.120)
[2018-07-04] MEDS: MAGNESIUM SULFATE 2 GM/50 ML 50 ML IVPB (15:59)
[2018-07-04] MEDS: DILTIAZEM (CD) 120 MG CAP PO ×2 (15:59→22:46)
[2018-07-04] MEDS: CEFTRIAXONE 1 GM/50 ML (PMX) 50 ML IVPB (22:44)
[2018-07-04] MEDS: LOPERAMIDE 2 MG CAP PO (23:14)
[2018-07-05 05:56] LABS: ADD MAN DIFF? NO
[2018-07-05 06:02] LABS: WHITE BLOOD COUNT 11.7 10^3/ul (4.8-10.8)
[2018-07-05 06:02] LABS: BASOPHILS % 0.1 % (0.0-2.0); HEMATOCRIT 40.9 % (42.0-52.0); HEMOGLOBIN 13.7 g/dl (14.0-18.0); LYMPHOCYTES # 0.7 10^3/ul (0.8-2.9); LYMPHOCYTES % 5.9 % (15.0-51.0); MEAN CORPUSCULAR HEMOGLOBIN 32.1 pg (29.0-33.0); MEAN CORPUSCULAR HGB CONC 33.5 g/dl (32.0-37.0); MEAN CORPUSCULAR VOLUME 95.8 fl (82.0-101.0); MONOCYTE # 0.2 10^3/ul (0.3-0.9); MONOCYTES % 1.9 % (0.0-11.0); NEUTROPHIL # 10.7 10^3/ul (1.6-7.5); NEUTROPHILS % 91.3 % (39.0-77.0); PLATELET COUNT 201 10^3/UL (140-415); RED BLOOD COUNT 4.27 10^6/ul (4.70-6.10)
[2018-07-05 06:44] LABS: ANION GAP 11 (5-13); BLOOD UREA NITROGEN 24 mg/dl (7-20); CALCIUM 9.3 mg/dl (8.4-10.2); CARBON DIOXIDE 27 mmol/L (21-31); CHLORIDE 100 mmol/L (97-110); CREATININE 0.81 mg/dl (0.61-1.24); Estimated GFR > 60 mL/min (>60); GLUCOSE 154 mg/dl (70-220); POTASSIUM 4.6 mmol/L (3.5-5.1); SODIUM 138 mmol/L (135-144)
[2018-07-05] MEDS: METHYLPREDNISOLONE 125 MG INJ IV ×2 (08:59→21:13)
[2018-07-05] MEDS: FAMOTIDINE 20 MG TAB PO ×2 (09:04→21:13)
[2018-07-05] MEDS: DILTIAZEM (CD) 120 MG CAP PO ×2 (09:04→21:13)
[2018-07-05] MEDS: ENOXAPARIN 40 MG/0.4 ML SYG SC (09:07)
[2018-07-05] MEDS: CEFTRIAXONE 1 GM/50 ML (PMX) 50 ML IVPB (17:53)
[2018-07-06] MEDS: METHYLPREDNISOLONE 125 MG INJ IV ×2 (08:49→21:43)
[2018-07-06] MEDS: FAMOTIDINE 20 MG TAB PO ×2 (08:49→21:43)
[2018-07-06] MEDS: DILTIAZEM (CD) 120 MG CAP PO ×2 (08:50→21:44)
[2018-07-06] MEDS: ENOXAPARIN 40 MG/0.4 ML SYG SC (08:58)
[2018-07-06] MEDS: CEFTRIAXONE 1 GM/50 ML (PMX) 50 ML IVPB (18:21)
[2018-07-07] MEDS: DILTIAZEM (CD) 120 MG CAP PO ×2 (08:15→20:12)
[2018-07-07] MEDS: METHYLPREDNISOLONE 125 MG INJ IV ×2 (08:15→20:11)
[2018-07-07] MEDS: FAMOTIDINE 20 MG TAB PO ×2 (08:15→20:11)
[2018-07-07] MEDS: ENOXAPARIN 40 MG/0.4 ML SYG SC (08:18)
[2018-07-07 14:50] LABS: ADD MAN DIFF? NO
[2018-07-07 14:55] LABS: BASOPHILS % 0.2 % (0.0-2.0); HEMATOCRIT 40.4 % (42.0-52.0); HEMOGLOBIN 13.4 g/dl (14.0-18.0); LYMPHOCYTES # 0.8 10^3/ul (0.8-2.9); LYMPHOCYTES % 6.1 % (15.0-51.0); MEAN CORPUSCULAR HEMOGLOBIN 31.5 pg (29.0-33.0); MEAN CORPUSCULAR HGB CONC 33.2 g/dl (32.0-37.0); MEAN CORPUSCULAR VOLUME 94.8 fl (82.0-101.0); MEAN PLATELET VOLUME 10.6 fl (7.4-10.4); MONOCYTE # 0.3 10^3/ul (0.3-0.9); MONOCYTES % 2.6 % (0.0-11.0); NEUTROPHIL # 11.6 10^3/ul (1.6-7.5); NEUTROPHILS % 89.9 % (39.0-77.0); PLATELET COUNT 194 10^3/UL (140-415); RED BLOOD COUNT 4.26 10^6/ul (4.70-6.10); RED CELL DISTRIBUTION WIDTH 13.8 % (11.5-14.5)
[2018-07-07 14:55] LABS: WHITE BLOOD COUNT 12.9 10^3/ul (4.8-10.8)
[2018-07-07 15:21] LABS: ANION GAP 9 (5-13); BLOOD UREA NITROGEN 26 mg/dl (7-20); CALCIUM 9.5 mg/dl (8.4-10.2); CARBON DIOXIDE 26 mmol/L (21-31); CHLORIDE 102 mmol/L (97-110); CREATININE 0.82 mg/dl (0.61-1.24); Estimated GFR > 60 mL/min (>60); GLUCOSE 152 mg/dl (70-220); POTASSIUM 3.8 mmol/L (3.5-5.1); SODIUM 137 mmol/L (135-144)
[2018-07-07] MEDS: CEFTRIAXONE 1 GM/50 ML (PMX) 50 ML IVPB (18:15)
[2018-07-08 06:23] LABS: ADD MAN DIFF? NO
[2018-07-08 06:31] LABS: BASOPHILS % 0.2 % (0.0-2.0); HEMATOCRIT 39.9 % (42.0-52.0); HEMOGLOBIN 13.4 g/dl (14.0-18.0); LYMPHOCYTES % 8.3 % (15.0-51.0); MEAN CORPUSCULAR HEMOGLOBIN 31.8 pg (29.0-33.0); MEAN CORPUSCULAR HGB CONC 33.6 g/dl (32.0-37.0); MEAN CORPUSCULAR VOLUME 94.5 fl (82.0-101.0); MEAN PLATELET VOLUME 10.8 fl (7.4-10.4); MONOCYTE # 0.4 10^3/ul (0.3-0.9); MONOCYTES % 3.1 % (0.0-11.0); NEUTROPHIL # 10.7 10^3/ul (1.6-7.5); NEUTROPHILS % 86.7 % (39.0-77.0); PLATELET COUNT 206 10^3/UL (140-415); RED BLOOD COUNT 4.22 10^6/ul (4.70-6.10); RED CELL DISTRIBUTION WIDTH 13.7 % (11.5-14.5)
[2018-07-08 06:31] LABS: WHITE BLOOD COUNT 12.4 10^3/ul (4.8-10.8)
[2018-07-08 07:02] LABS: ANION GAP 8 (5-13); BLOOD UREA NITROGEN 25 mg/dl (7-20); CALCIUM 9.2 mg/dl (8.4-10.2); CARBON DIOXIDE 31 mmol/L (21-31); CHLORIDE 100 mmol/L (97-110); CREATININE 0.78 mg/dl (0.61-1.24); Estimated GFR > 60 mL/min (>60); GLUCOSE 123 mg/dl (70-220); SODIUM 139 mmol/L (135-144)
[2018-07-08] MEDS: METHYLPREDNISOLONE 125 MG INJ IV ×2 (10:12→20:05)
[2018-07-08] MEDS: DILTIAZEM (CD) 120 MG CAP PO ×2 (10:13→20:05)
[2018-07-08] MEDS: FAMOTIDINE 20 MG TAB PO ×2 (10:13→20:05)
[2018-07-08] MEDS: ENOXAPARIN 40 MG/0.4 ML SYG SC (10:53)
[2018-07-08] MEDS: CEFTRIAXONE 1 GM/50 ML (PMX) 50 ML IVPB (17:29)
[2018-07-09] MEDS: METHYLPREDNISOLONE 125 MG INJ IV (09:35)
[2018-07-09] MEDS: FAMOTIDINE 20 MG TAB PO ×2 (09:35→20:13)
[2018-07-09] MEDS: DILTIAZEM (CD) 120 MG CAP PO ×2 (09:36→20:13)
[2018-07-09] MEDS: ENOXAPARIN 40 MG/0.4 ML SYG SC (09:59)
[2018-07-09 11:43] LABS: ADD MAN DIFF? NO
[2018-07-09 11:46] LABS: WHITE BLOOD COUNT 13.4 10^3/ul (4.8-10.8)
[2018-07-09 11:46] LABS: BASOPHIL # 0.1 10^3/ul (0.0-0.1); BASOPHILS % 0.4 % (0.0-2.0); HEMATOCRIT 42.4 % (42.0-52.0); HEMOGLOBIN 14.4 g/dl (14.0-18.0); LYMPHOCYTES % 7.4 % (15.0-51.0); MEAN CORPUSCULAR HEMOGLOBIN 31.9 pg (29.0-33.0); MEAN PLATELET VOLUME 10.5 fl (7.4-10.4); MONOCYTE # 0.7 10^3/ul (0.3-0.9); MONOCYTES % 5.3 % (0.0-11.0); NEUTROPHIL # 11.3 10^3/ul (1.6-7.5); NEUTROPHILS % 84.4 % (39.0-77.0); PLATELET COUNT 245 10^3/UL (140-415); RED BLOOD COUNT 4.51 10^6/ul (4.70-6.10); RED CELL DISTRIBUTION WIDTH 13.8 % (11.5-14.5)
[2018-07-09 12:01] LABS: ANION GAP 11 (5-13); BLOOD UREA NITROGEN 28 mg/dl (7-20); CALCIUM 9.6 mg/dl (8.4-10.2); CARBON DIOXIDE 29 mmol/L (21-31); CHLORIDE 100 mmol/L (97-110); CREATININE 0.79 mg/dl (0.61-1.24); Estimated GFR > 60 mL/min (>60); GLUCOSE 163 mg/dl (70-220); POTASSIUM 3.8 mmol/L (3.5-5.1); SODIUM 140 mmol/L (135-144)
[2018-07-09] MEDS: CEFTRIAXONE 1 GM/50 ML (PMX) 50 ML IVPB (17:10)
[2018-07-09] MEDS: predniSONE 20 MG TAB PO (20:13)
[2018-07-10] MEDS: FAMOTIDINE 20 MG TAB PO (08:17)
[2018-07-10] MEDS: predniSONE 20 MG TAB PO (08:17)
[2018-07-10] MEDS: DILTIAZEM (CD) 120 MG CAP PO (08:18)
[2018-07-10] MEDS: ENOXAPARIN 40 MG/0.4 ML SYG SC (09:00)
[2018-07-10] MEDS: CEFTRIAXONE 1 GM/50 ML (PMX) 50 ML IVPB (17:29)
== END 2018-07-10 18:42 | disposition home or self-care (01) | DRG 190 ==
LOC: 6WM 21:18 → E/R 20:36
DX: J44.1 Chronic obstructive pulmonary disease with (acute) exacerbation (principal); J96.21 Acute and chronic respiratory failure with hypoxia; I47.1 Supraventricular tachycardia; J93.9 Pneumothorax, unspecified; I48.91 Unspecified atrial fibrillation; I10 Essential (primary) hypertension; E86.0 Dehydration; E78.5 Hyperlipidemia, unspecified; Z87.891 Personal history of nicotine dependence
CPT/HCPCS: 36415; 36600; 71045; 80048; 80053; 82550; 82553; 82803; 83036; 83690; 83735; 83880; 84484; 85025; 93005; 93306; 94644; 96374; 96375; 99285-25